=== PATIENT | female | born 1940 | race Caucasian/White ===

== ENCOUNTER → 2016-10-31 | Outpatient (CLI) | payer OTHER ==
[~2016-10-31] MED LIST: AMLO-110 PO; ANSHCCR PR; ANSHCS RE; ATOR10TA88 PO; CALC-51 PO; ESTR10TA PV; GLUC10007 PO; MAGN400T6 PO; MULT-506 PO; TAMO20TA47 PO; VITAMIN D PO
--- NOTE | 2016-10-31 13:31 | MAMMOGRAPHY REPORT ---
BILATERAL DIGITAL DIAGNOSTIC MAMMOGRAM TOMOSYNTHESIS AND TARGETED LEFT ULTRASOUND: 10/31/2016 CLINICAL HISTORY: The patient reports left breast pain for approximately 3 weeks, which is intermitt ent and sometimes is located behind the nipple and sometimes located within the left lateral breast. She also reports a lump on the left lateral areola, which she does not know how long she has had. TECHNIQUE: Breast tomosynthesis in addition to standard 2D mammography was performed. Bilateral CC and MLO 2-D and tomosynthesis images were obtained. COMPARISON: Comparison is made to exams dated: 01/23/2016 mammogram - [facility], 1 09/13/2012 mammogram, 12/10/2011 mammogram, 12/21/2014 mammogram, and 12/06/2010 mammogram. BREAST COMPOSITION: There are scattered areas of fibroglandular density in both breasts. FINDINGS: There are multiple circumscribed benign-appearing masses scattered within the left breast, which likely represent cysts. One 5 mm mass within the left upper inner quadrant appears larger co mpared to prior exams and has somewhat microlobulated margins on the cc tomosynthesis images. The r emainder of both breasts are stable compared to prior exams, without suspicious masses, calcificatio ns, or areas of architectural distortion noted. Bilateral benign-appearing calcifications are not s ignificantly changed. Targeted ultrasound was performed of the left lateral breast in the region of pain pointed out by th e patient, involving the left 2 to 4:00 breast. Numerous scattered round/oval anechoic circumscribe d masses are seen in the left lateral breast, some containing thin internal septations, consistent w ith benign cysts and cyst clusters. These correspond with the mammographic masses. Targeted ultras ound was also performed of the left subareolar breast, which shows no suspicious masses. Targeted u ltrasound of the palpable lump on the left lateral areola demonstrates no suspicious sonographic abn ormality. Targeted ultrasound was performed of the left upper inner quadrant in the region of the mammographic mass which is larger in size. In the left breast at 11:00, 3 cm from the nipple, there is a round, mixed echogenicity but predominantly hypoechoic mass which measures 5 x 4 x 4 mm. A vessel is seen adjacent to the mass but no clear internal vascularity is evident. This is felt to correspond with the increasing mammographic mass and is indeterminant. Recommend ultrasound-guided biopsy for furt her evaluation. IMPRESSION: ACR BI-RADS CATEGORY 4: SUSPICIOUS, TARGETED ULTRASOUND ACR BI-RADS CATEGORY 4: SUSPICI OUS 1. No suspicious mammographic or sonographic abnormality at the site of left lateral and subareolar breast pain. Multiple small benign cysts were seen within the left lateral breast. 2. No suspicious mammographic or sonographic abnormality seen at the site of the palpable lump on t he left lateral areola. Recommend clinical follow-up. 3. Heterogeneous 5 mm mass within the left breast at 11:00. The mass is indeterminant and ultrasou nd guided core needle biopsy is recommended for further evaluation. A phone call was made to the physician's office to confirm faxed results were received. The patient has been verbally notified of the results. She tentatively scheduled the biopsy before leaving the department. Approximately 10% of breast cancers are not detected with mammography. A negative mammographic repor t should not delay biopsy if a clinically suggestive mass is present. Ifeoma Vang M.D. ah/:10/31/2016 12:05:42 Welding Rod Coater: Corina DELANEY)(Robbi), [facility] letter sent: Abnormal 4/5 BI-RADS Code: ACR BI-RADS Category 4: Suspicious Ultrasound BI-RADS: ACR BI-RADS Category 4: Suspic ious
== END | disposition home or self-care (01) ==
LOC: C.MAMM 09:24
PROVIDERS: ATTEND Family Medicine
DX: N64.4 Mastodynia (principal); N60.02 Solitary cyst of left breast; N63 Unspecified lump in breast

== ENCOUNTER → 2016-11-11 | Outpatient (CLI) | payer OTHER ==
--- NOTE | 2016-11-11 10:01 | Discharge Instructions ---
Discharge Instructions Procedure Procedure Date: Nov 11, 2016. Reason for visit: Left Mass. Discharge Discharge Date: Nov 11, 2016. Discharge Diagnosis: post left breast ultrasound guided core biopsy Instructions Activity Recommendations: Additional Limitations (see below) Return to School/Work: no limitations Recommended Home Diet: No Limitations Provider Instructions: ACTIVITY RECOMMENDATIONS: * No lifting, pushing, pulling or exercising the affected side for three days. RETURN TO SCHOOL/WORK: * You may return to work/school after the procedure, but do not perform any strenuous activities for 24 to 48 hours. MEDICATIONS: * Tylenol (two 325 mg) every four to six hours if needed for mild pain (if not allergic to Tylenol). DIET: * Resume previous diet. SPECIAL CARE INSTRUCTIONS: * Keep biopsy site dry for 24 hours. May shower after 24 hours, but do not soak (bathe) incision. * May remove Tegaderm (plastic patch) tomorrow AFTER showering. * Leave the steri-strips on for one week. Allow the steri-strips to fall off by themselves. If not off after one week, you may remove them. You may place a Bandaid crosswise over the strips, if desired. * Apply ice 10 minutes on and 10 minutes off as needed. * Wear a bra at bedtime to sleep more comfortably for 2-3 days. * Your referring physician should have the results after approximately 5 to 7 business days. * Call for unusual bleeding, fever, drainage, etc or if you have any questions call [phone] during normal business hours or after hours call Dr Dupree, . FOLLOW UP VISIT: Follow-up with Referring Physician as scheduled. Allergies Coded Allergies: Iodine (Verified Allergy, Unknown, CT DYE - FINE RASH ALL OVER BODY, ) Bharti Painting Recommendations: Call your doctor if: * Temperature above 101 degrees * Pain not relieved by pain medicine ordered * There is increased drainage or redness from any incision * You have any unanswered questions or concerns. Your Doctors Instructions noted above were prepared by provider Taylor Dupree. Patient Signature Section: Patient Instructions Signature Page Cira Medina Patient (or Guardian) Signature/Date: I have read and understand the instructions given to me by my caregivers. Caregiver/RN/Doctor Signature/Date: The above-named patient and/or guardian has received patient instructions on this date. + Original Patient Signature Page (only) stays with chart. Please make copy for patient.
--- NOTE | 2016-11-11 12:47 | MAMMOGRAPHY REPORT ---
UNILATERAL LEFT DIGITAL DIAGNOSTIC MAMMOGRAM TOMOSYNTHESIS: 11/11/2016 CLINICAL HISTORY: Status post ultrasound-guided core biopsy of an indeterminate mass in the 11:00 le ft breast. Please refer to the report from left breast ultrasound guided core biopsy performed at the same time for full detail. IMPRESSION: POST PROCEDURE IMAGING FOR MARKER PLACEMENT Please refer to the report from left breast ultrasound guided core biopsy performed at the same time for full detail. Approximately 10% of breast cancers are not detected with mammography. A negative mammographic repor t should not delay biopsy if a clinically suggestive mass is present. Taylor Dupree M.D. ay/:11/11/2016 10:06:31 Billing Department Supervisor: Nelli Barreto, [facility] BI-RADS Code: Post Procedure Imaging For Marker Placement
--- NOTE | 2016-11-11 12:47 | MAMMOGRAPHY REPORT ---
THIS REPORT HAS BEEN AMENDED. ULTRASOUND GUIDED BIOPSY LEFT BREAST: 11/11/2016 CLINICAL HISTORY: Indeterminate mixed echogenicity mass in the 11:00 left breast. Patient presents for ultrasound-guided core needle biopsy. COMPARISON: Comparison is made to exams dated: 10/31/2016 mammogram, 10/31/2016 ultrasound, 01/23/2016 mammogram - [facility], and 12/21/2014 mammogram. PATIENT CONSENT: The procedure, risks and benefits were discussed with the patient and informed writ ten consent was obtained. Specific risks to this procedure include: bleeding, infection, puncture of adjacent structure, nontarget biopsy, sampling error, metal allergy and medication reaction. PROCEDURE DESCRIPTION: A time out was performed and the left breast was agreed as the site of biopsy . The skin was prepped and draped in the usual sterile fashion. The solid mass with echogenic halo i n the 11:00 left breast was chosen as the target for biopsy. Subcutaneous and intraparenchymal 1% bu ffered lidocaine without epinephrine was administered as local anesthesia. A skin incision was made. Through the incision, 3 samples were taken with a 14 gauge Achieve biopsy device. A metallic marke r was placed at the biopsy site. Hemostasis was achieved after manual compression. The patient sandy ated the procedure well and there was no immediate complication. The samples were sent to the patho logy department in an appropriately labeled container. Postprocedure left CC and ML tomosynthesis images and reconstructed C-view were obtained. There is a new ribbon-shaped metallic biopsy marker aligning with the mammographic mass in question in the 11 :00 anterior left breast. No significant postbiopsy hematoma is identified. IMPRESSION: ULTRASOUND GUIDED BIOPSY Status post ultrasound guided core needle biopsy of an indeterminate mixed echogenicity seen mass wi th echogenic halo and adjacent vessel in the 11:00 left breast, with biopsy marker placed at the sit e. The patient will receive notification of the biopsy results from her referring physician. Taylor Dupree M.D. ay/:11/11/2016 11:00:09 Fire Investigation Lieutenant: Nelli Barreto, [facility] AMENDMENT: 11/21/2016 Taylor Dupree M.D. 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 The carcinoma is ER and IN positive, HER-2/pati nega tive. The pathology results are concordant with the imaging appearance. Although additional benign simple cysts were identified throughout the left breast on ultrasound, given the diffuse nodular pa ttern of the breasts, recommend further evaluation with a contrast-enhanced breast MRI prior to defi nitive surgical treatment, to exclude the possibility of any other suspicious solid enhancing mass o n MRI.
== END | disposition home or self-care (01) ==
LOC: C.MAMM 08:48
PROVIDERS: ATTEND Family Medicine
DX: C50.912 Malignant neoplasm of unspecified site of left female breast (principal)

== ENCOUNTER → 2017-02-18 | Outpatient (CLI) | payer OTHER ==
[~2017-02-18] MED LIST changes: -ESTR10TA PV; -GLUC10007 PO
[2017-02-18 14:46] VITALS: BP 119/64; PULSE 65; TEMP 37.1; O2SAT 94
--- NOTE | 2017-02-18 15:52 | Radiation Oncology Follow-Up ---
Radiation Oncology Follow-Up Date of Visit Feb 18, 2017. Reason For Visit One-month follow-up in cancer survivorship care plan Radiation Completion Date 01/16/17 Diagnosis (1) Breast cancer Status: Acute Onset Date: 11/11/2016 Histology Subtype: ductal Stage: l (A) Permanent Comment: Left breast discomfort Abnormal left breast mammogram Status post core needle biopsy 11/11/2016 revealing invasive ductal carcinoma Estrogen receptor positive, progesterone receptor positive, and HER-2/pati negative Status post lumpectomy and sentinel lymph node biopsy 12/02/2016 Stage [id number] Status post completion of radiation therapy 01/16/2017 received 3850 cGy utilizing accelerated partial breast irradiation. Last Edited By: Jackie Lawson on Jan 28, 2017 17:05 History of Present Illness Ms. Medina is a 76-year-old female who noted some tingling/pain in the left breast. She does have a family history of breast cancer as the patient's daughter was diagnosed and treated for a breast cancer. She did undergo BRCA testing and was negative. She had undergone bilateral digital screening mammogram on 01/23/2016. No evidence of malignancy was noted and a one-year screening mammogram was recommended. However with the complaint of left breast pain the patient underwent a bilateral digital diagnostic mammogram and targeted left breast ultrasound on 10/31/2016. Multiple circumscribed benign appearing masses were noted scattered within the left breast likely representing cysts. One 5 mm mass was noted within the left upper inner quadrant that appears larger compared to the prior exams and somewhat lobulated margins. The remainder of both breasts were stable compared to prior examinations without suspicious masses or calcifications are areas of architectural distortion. Targeted ultrasound was performed of the left lateral breast in the region of pain as noted by the patient involving the left breast at the 2 to 4 o'clock position. Numerous scattered round/moldable anechoic circumscribed masses are seen in the left lateral breast, some containing thin internal septations consistent with benign cysts or cyst clusters. These correspond with the mammographic masses. Targeted ultrasound was also performed of the left subareolar breast showing no suspicious masses. Targeted ultrasound of the palpable lump on the left lateral areola demonstrated no suspicious sonographic abnormalities. Targeted ultrasound was performed of the left upper inner quadrant in the region of the mammographic mass which had increased slightly in size. This was located at the 11 o'clock position 3 cm from the nipple. A round mixed echogenicity but predominantly hypoechoic mass was noted measuring 0.5 x 0.4 x 0.4 cm. This was felt to correspond with the increasing mammographic mass and was indeterminant. A ultrasound-guided biopsy was therefore recommended with a BI-RADS Category 4. On 11/11/2016 the patient underwent an ultrasound-guided core biopsy of the left breast at the 11 o'clock position. This revealed an invasive ductal carcinoma, Braulio grade 1 of 3. There was no lymphovascular invasion identified. Estrogen receptors were positive (100%, strong intensity, H-score: 300). Progesterone receptors were positive (100%, strong intensity, H-score: 300). HER-2/pati overexpression was negative by IHC and confirmed negative by FISH amplification. Ki-67 proliferation index was 10% (low): 17-10/01/2008-S. Patient was seen by Dr. Stallings for discussion of surgical treatment options. The patient opted to proceed with breast conserving therapy. On 12/02/2016 patient underwent a left breast partial mastectomy and sentinel node biopsy. A single sentinel node was negative for metastatic carcinoma. The lumpectomy specimen confirmed an invasive carcinoma and ST with Braulio grade 2 of 3 measuring 0.5 cm. Margins were negative with the closest margin at 0.2 cm from the anterior margin. No angiolymphatic invasion was identified. No DCIS was noted. Final AJCC pathologic staging was therefore pT1b pN0(sn-), ER positive, MN positive and HER-2/pati negative. Patient went on to have a PROSIG PAM50 genomic evaluation of her tumor. Her Prosigna score was 42 placing her in the low intermediate risk category. This is consistent with a probability of 10 year distant recurrence of 10%. The patient was subsequently seen by Dr. Uriah Cody. Based on the pathology and genomic results he recommended no adjuvant systemic chemotherapy. He did recommend adjuvant antiestrogen therapy with tamoxifen. We were asked to see the patient to discuss the role of adjuvant radiation. It is for this reason the patient is seen in referral She returned to our office and underwent a CT simulation. She was found to be a candidate for accelerated partial breast irradiation. She completed therapy 01/16/2017 and received 3850 cGy.. Interim History She's been doing well over this past month. She did develop an area of redness where she previously had a fiducial sticker. This is steadily improving. She has occasional quick sharp discomfort. She had noticed also a pressure feeling in the breast. She has noted no masses and no change of the axilla. She's had no swelling of her arm. She saw Dr. Cody and was started on tamoxifen. She is tolerating this well and has minimal side effects. She occasionally has a feeling of warmth. Allergies Coded Allergies: Iodine (Verified Allergy, Unknown, CT DYE - FINE RASH ALL OVER BODY, ) Home Medications Scheduled Amlodipine (Norvasc), 5 MG PO QAM Atorvastatin (Lipitor), 1 TAB PO DAILY Calcium Carbonate-Vitamin D (Calcium), 1 TAB PO QPM Hydrocortisone Acetate (Anucort-Hc), 1 SUPP RE DIRECTED Magnesium Oxide (Mag-Ox), 500 MG PO QPM Multivitamin (Multivitamin), 1 TAB PO QAM Tamoxifen (Nolvadex), 20 MG PO DAILY Scheduled PRN Hydrocortisone (Proctosol Hc), 1 APPLN MN TID PRN for Hemorrhoids Review of Systems Gastrointestinal: Symptoms: WNL Oral: Symptoms: No Problems Respiratory: Symptoms: WNL Urinary: Symptoms: WNL Skin: Symptoms: Faint Erythema Other Skin Symptoms: pt states discomfort treatment area notes occ swelling Breast: Right Upper Arm Measurement: 29.7 Right Mid Arm Measurement: 26.0 Right Wrist Measurement: 16.7 Left Upper Arm Measurement: 29.7 Left Mid Arm Measurement: 25.2 Left Wrist Measurement: 17.8 Arm Dominence: Right Physical Exam Vital Signs Date Time Temp Pulse Resp B/P (MAP) Pulse Ox O2 Delivery O2 Flow Rate FiO2 02/18/17 14:46 37.1 65 20 119/64 94 Fatigue: None General Appearance: no apparent distress Eyes: normal inspection, EOMI ENT: normal ENT inspection, hearing grossly normal Neck: no adenopathy, thyroid normal Respiratory/Chest: lungs clear, no respiratory distress, no accessory muscle use Breast: Breast examination reveals well-healed incisions of the left breast. There are no masses or tenderness no axillary adenopathy. There is mild fibrous tissue. There is no erythema or edema. There is no axillary adenopathy. She has no skin retractions. There is no hyperpigmentation. Using the Pickens score cosmesis she has a excellent outcome. The right breast showed no masses or tenderness and no axillary adenopathy. Cardiovascular: regular rate, rhythm, no gallop, no murmur Abdomen: non tender, soft Extremities: no pedal edema Neurologic/Psychiatric: no motor/sensory deficits, alert, normal mood/affect Skin: warm/dry Assessment & Plan Plan: Continue regular follow-up with Dr. Stallings, Dr. Cody, and her primary care physician. She continues on tamoxifen. We discussed that she could use cortisone to the area of skin previously was irritated if she has any itching or discomfort. Mammography was scheduled for the left breast in 6 months. She' ll then have bilateral mammography in 8 months. These will be digital diagnostic mammograms. Today we completed a cancer survivorship care plan. A copy of the document was given to the patient. We asked her to return to our office in 6 months. She will call if she has any questions or concerns in the interim. Total Time In Follow-Up I spent 20 minutes speaking to the patient and performing examination. I spent 20 minutes reviewing information, preparing the survivorship document, and completing this note. Copy To Chelsea Stallings MD; Julia Bocanegra,DO; Uriah Cody M.D. Problem Qualifiers (1) Breast cancer: Breast location: upper inner quadrant of breast Estrogen receptor status: positive Patient sex: female Laterality: left Qualified Codes: C50.212 - Malignant neoplasm of upper-inner quadrant of left female breast; Z17.0 - Estrogen receptor positive status [ER+]
== END | disposition home or self-care (01) ==
LOC: C.ONC 14:42
PROVIDERS: ATTEND Physician Assistant Medical
DX: Z08 Encounter for follow-up examination after completed treatment for malignant neoplasm (principal); Z92.3 Personal history of irradiation; Z85.3 Personal history of malignant neoplasm of breast

== ENCOUNTER → 2017-04-20 | Outpatient (CLI) | payer OTHER ==
[~2017-04-20] MED LIST changes: -VITAMIN D PO
--- NOTE | 2017-04-20 13:49 | MAMMOGRAPHY REPORT ---
UNILATERAL LEFT DIGITAL DIAGNOSTIC MAMMOGRAM TOMOSYNTHESIS WITH CAD: 04/20/2017 CLINICAL HISTORY: 77-year-old woman with a personal history of left breast cancer in the 11:00 axis s tatus post breast conservation treatment with lumpectomy performed in the past 5 months. TECHNIQUE: Left breast CC and MLO 2-D and tomosynthesis images, spot magnification left CC and ML vie ws were obtained. Current study was also evaluated with a Computer Aided Detection (CAD) system. COMPARISON: Comparison is made to exams dated: 11/11/2016 mammogram, 11/11/2016 ultrasound biopsy, 10/22 ultrasound, 01/23/2016 mammogram - [facility], 07/14/2013 mammogram, and 2014 mammogram. BREAST COMPOSITION: There are scattered areas of fibroglandular density in the left breast. FINDINGS: A linear scar marker overlies the anterior left breast. There is mild diffuse skin thicken ing and trabecular edema of the left breast, likely related to prior treatment. There is a well-circ umscribed oval mass with thin lucent rim measuring 2.9 x 2.1 cm in the 11:00 middle one third of the left breast, with surrounding architectural distortion, compatible with the surgical site. A 3 mm ci rcumscribed mass with single associated punctate calcification in the upper outer middle one third of the left breast has been stable on prior mammograms dating back to at least 12/10/2011, therefore li erickson benign. Overall, there is decreased nodularity of the left breast compared to prior mammograms, particularly the lateral aspect of the breast. No new suspicious mass, architectural distortion or cluster of microcalcifications is seen. IMPRESSION: ACR-BI-RADS CATEGORY 3: PROBABLY BENIGN Expected post treatment changes in the 11:00 left breast, without definite mammographic evidence of m alignancy. A close follow-up left diagnostic mammogram and possible ultrasound is recommended to ens ure stability in 6 months. Annual right mammography will also be due at that time. These results and recommendations were discussed with the patient at the time of the exam. She tenta tively scheduled a follow-up appointment prior to leaving our department. Approximately 10% of breast cancers are not detected with mammography. A negative mammographic report should not delay biopsy if a clinically suggestive mass is present. Taylor Dupree M.D. ay/:04/20/2017 11:23:24 Security Operations Center Operator: Corina DELANEY)(Robbi), [facility] letter sent: Follow Up Recommended 3 BI-RADS Code: ACR-BI-RADS Category 3: Probably Benign
== END | disposition home or self-care (01) ==
LOC: C.MAMM 10:48
PROVIDERS: ATTEND Physician Assistant Medical
DX: Z08 Encounter for follow-up examination after completed treatment for malignant neoplasm (principal); Z85.3 Personal history of malignant neoplasm of breast

== ENCOUNTER → 2017-08-26 | Outpatient (CLI) | payer OTHER ==
[~2017-08-26] MED LIST changes: +ATOR10TA82 PO; -ATOR10TA88 PO; +GLUCTAB7 PO; -TAMO20TA47 PO; +TAMO20TA9 PO
[2017-08-26 13:14] VITALS: BP 131/79; PULSE 60; TEMP 36.5; O2SAT 98
--- NOTE | 2017-08-26 14:30 | Radiation Oncology Follow-Up ---
Radiation Oncology Follow-Up Date of Visit Aug 26, 2017. Reason For Visit 6 month follow up Radiation Completion Date APBI 01/16/17 Diagnosis (1) Breast cancer Status: Acute Onset Date: 11/11/2016 Histology Subtype: ductal Stage: l (A) Permanent Comment: Left breast discomfort Abnormal left breast mammogram Status post core needle biopsy 11/11/2016 revealing invasive ductal carcinoma Estrogen receptor positive, progesterone receptor positive, and HER-2/pati negative Status post lumpectomy and sentinel lymph node biopsy 12/02/2016 Stage [id number] Status post completion of radiation therapy 01/16/2017 received 3850 cGy utilizing accelerated partial breast irradiation. Last Edited By: Jackie Lawson on Jan 28, 2017 17:05 History of Present Illness Ms. Jhaveri is a 76-year-old female who noted some tingling/pain in the left breast. She does have a family history of breast cancer as the patient's daughter was diagnosed and treated for a breast cancer. She did undergo BRCA testing and was negative. She had undergone bilateral digital screening mammogram on 01/23/2016. No evidence of malignancy was noted and a one-year screening mammogram was recommended. However with the complaint of left breast pain the patient underwent a bilateral digital diagnostic mammogram and targeted left breast ultrasound on 10/31/2016. Multiple circumscribed benign appearing masses were noted scattered within the left breast likely representing cysts. One 5 mm mass was noted within the left upper inner quadrant that appears larger compared to the prior exams and somewhat lobulated margins. The remainder of both breasts were stable compared to prior examinations without suspicious masses or calcifications are areas of architectural distortion. Targeted ultrasound was performed of the left lateral breast in the region of pain as noted by the patient involving the left breast at the 2 to 4 o'clock position. Numerous scattered round/moldable anechoic circumscribed masses are seen in the left lateral breast, some containing thin internal septations consistent with benign cysts or cyst clusters. These correspond with the mammographic masses. Targeted ultrasound was also performed of the left subareolar breast showing no suspicious masses. Targeted ultrasound of the palpable lump on the left lateral areola demonstrated no suspicious sonographic abnormalities. Targeted ultrasound was performed of the left upper inner quadrant in the region of the mammographic mass which had increased slightly in size. This was located at the 11 o'clock position 3 cm from the nipple. A round mixed echogenicity but predominantly hypoechoic mass was noted measuring 0.5 x 0.4 x 0.4 cm. This was felt to correspond with the increasing mammographic mass and was indeterminant. A ultrasound-guided biopsy was therefore recommended with a BI-RADS Category 4. On 11/11/2016 the patient underwent an ultrasound-guided core biopsy of the left breast at the 11 o'clock position. This revealed an invasive ductal carcinoma, Braulio grade 1 of 3. There was no lymphovascular invasion identified. Estrogen receptors were positive (100%, strong intensity, H-score: 300). Progesterone receptors were positive (100%, strong intensity, H-score: 300). HER-2/pati overexpression was negative by IHC and confirmed negative by FISH amplification. Ki-67 proliferation index was 10% (low): -10/01/2008-S. Patient was seen by Dr. Stallings for discussion of surgical treatment options. The patient opted to proceed with breast conserving therapy. On 12/02/2016 patient underwent a left breast partial mastectomy and sentinel node biopsy. A single sentinel node was negative for metastatic carcinoma. The lumpectomy specimen confirmed an invasive carcinoma and ST with Braulio grade 2 of 3 measuring 0.5 cm. Margins were negative with the closest margin at 0.2 cm from the anterior margin. No angiolymphatic invasion was identified. No DCIS was noted. Final AJCC pathologic staging was therefore pT1b pN0(sn-), ER positive, UT positive and HER-2/pati negative. Patient went on to have a PROSIG PAM50 genomic evaluation of her tumor. Her Prosigna score was 42 placing her in the low intermediate risk category. This is consistent with a probability of 10 year distant recurrence of 10%. The patient was subsequently seen by Dr. Uriah Cody. Based on the pathology and genomic results he recommended no adjuvant systemic chemotherapy. He did recommend adjuvant antiestrogen therapy with tamoxifen. We were asked to see the patient to discuss the role of adjuvant radiation. It is for this reason the patient is seen in referral She returned to our office and underwent a CT simulation. She was found to be a candidate for accelerated partial breast irradiation. She completed therapy 01/16/2017 and received 3850 cGy.. Interim History She continues to have a mild discomfort of the left lateral breast. She states that this is a "gentle" discomfort. She does not give it a pain level. This will occur intermittently. It may not occur for several weeks. She did notice that there was some discomfort after her mammogram. This is in the outer portion of the breast and radiates centrally. There been no changes of the overlying skin. She's noted no change of the axilla. She is up-to-date on mammography. She is on tamoxifen and denies side effects. Allergies Coded Allergies: Iodine (Verified Allergy, Unknown, CT DYE - FINE RASH ALL OVER BODY, ) Home Medications Scheduled Amlodipine (Norvasc), 5 MG PO QAM Atorvastatin (Lipitor), 1 TAB PO DAILY Calcium Carbonate-Vitamin D (Calcium), 1 TAB PO QPM Hlpokvsqzvq-Iyqnqgrjqic-Onz C- (Glucosamine Chondroitin), 1 TAB PO BID Hydrocortisone Acetate (Anucort-Hc), 1 SUPP RE DIRECTED Magnesium Oxide (Mag-Ox), 500 MG PO QPM Multivitamin (Multivitamin), 1 TAB PO QAM Tamoxifen (Nolvadex), 20 MG PO DAILY Scheduled PRN Hydrocortisone (Proctosol Hc), 1 APPLN UT TID PRN for Hemorrhoids Review of Systems Gastrointestinal: Symptoms: WNL, Rectal Bleeding GI Comments: Rectal spotting that she relates to her hemorrhoids; Oral: Symptoms: No Problems Respiratory: Symptoms: WNL Urinary: Symptoms: WNL Skin: Symptoms: No Problems Breast: Right Upper Arm Measurement: 32.5 Right Mid Arm Measurement: 24.5 Right Wrist Measurement: 17.0 Left Upper Arm Measurement: 31.5 Left Mid Arm Measurement: 23.5 Left Wrist Measurement: 17.5 Arm Dominence: Right Physical Exam Vital Signs Date Time Temp Pulse Resp B/P (MAP) Pulse Ox O2 Delivery O2 Flow Rate FiO2 08/26/17 13:14 36.5 60 20 131/79 98 General Appearance: no apparent distress Eyes: normal inspection, EOMI ENT: normal ENT inspection, hearing grossly normal Neck: no adenopathy, thyroid normal Respiratory/Chest: lungs clear, no respiratory distress, no accessory muscle use Breast: Breast examination reveals well-healed incisions of the left breast. There are mild fibrous changes in the upper central portion of the breast. There is no tenderness. There are no masses. She has no changes of the axilla. There are no skin retractions or nipple changes. Using the [place] score cosmesis she has a excellent outcome. The right breast showed no masses or tenderness no axillary adenopathy. Cardiovascular: regular rate, rhythm, no gallop, no murmur Abdomen: non tender, soft Extremities: normal inspection Neurologic/Psychiatric: no motor/sensory deficits, alert, normal mood/affect Skin: warm/dry Pain Management Patient Reports Pain: No Pain Management Plan She currently denies pain and therefore requires no pain management. 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 TECHNIQUE: Left breast CC and MLO 2-D and tomosynthesis images, spot magnification left CC and ML views were obtained. Current study was also evaluated with a Computer Aided Detection (CAD) system. COMPARISON: Comparison is made to exams dated: 11/11/2016 mammogram, 11/11/2016 ultrasound biopsy, 10/31/2016 ultrasound, 01/23/2016 mammogram - [facility], 07/14/2013 mammogram, and 12/21/2014 mammogram. BREAST COMPOSITION: There are scattered areas of fibroglandular density in the left breast. FINDINGS: A linear scar marker overlies the anterior left breast. There is mild diffuse skin thickening and trabecular edema of the left breast, likely related to prior treatment. There is a well-circumscribed oval mass with thin lucent rim measuring 2.9 x 2.1 cm in the 11:00 middle one third of the left breast, with surrounding architectural distortion, compatible with the surgical site. A 3 mm circumscribed mass with single associated punctate calcification in the upper outer middle one third of the left breast has been stable on prior mammograms dating back to at least 12/10/2011, therefore likely benign. Overall , there is decreased nodularity of the left breast compared to prior mammograms , particularly the lateral aspect of the breast. No new suspicious mass, architectural distortion or cluster of microcalcifications is seen. IMPRESSION: ACR-BI-RADS CATEGORY 3: PROBABLY BENIGN Expected post treatment changes in the 11:00 left breast, without definite mammographic evidence of malignancy. A close follow-up left diagnostic mammogram and possible ultrasound is recommended to ensure stability in 6 months. Annual right mammography will also be due at that time. These results and recommendations were discussed with the patient at the time of the exam. She tentatively scheduled a follow-up appointment prior to leaving our department. Approximately 10% of breast cancers are not detected with mammography. A negative mammographic report should not delay biopsy if a clinically suggestive mass is present. Taylor Dupree M.D. ay/:04/20/2017 11:23:24 Medical Art Therapist: Corina DELANEY)(Robbi), [facility] letter sent: Follow Up Recommended 3 BI-RADS Code: ACR-BI-RADS Category 3: Probably Benign Dictated by: Taylor Dupree MD Signed by: Taylor Dupree MD Assessment & Plan Plan: Continue scheduled mammography. Scheduling was checked and date and time were given. Her next mammogram will be a lateral digital diagnostic mammogram. She continues on tamoxifen. Continue regular follow-up with medical oncology and her breast surgeon. Dr. Cody is now retired. She stated that she will be receiving an appointment to follow-up with one of his associates. We asked her to return to our office in 1 year. She may call if she has any questions or concerns. Total Time In Follow-Up I spent 20 minutes speaking to the patient performing examination. I spent 15 minutes reviewing information and completing this note. Copy To Chelsea Stallings MD; Julia Bocanegra,DO Problem Qualifiers (1) Breast cancer: Breast location: upper inner quadrant of breast Estrogen receptor status: positive Patient sex: female Laterality: left Qualified Codes: C50.212 - Malignant neoplasm of upper-inner quadrant of left female breast; Z17.0 - Estrogen receptor positive status [ER+]
== END | disposition home or self-care (01) ==
LOC: C.ONC 13:09
PROVIDERS: ATTEND Physician Assistant Medical
DX: Z08 Encounter for follow-up examination after completed treatment for malignant neoplasm (principal); Z92.3 Personal history of irradiation; Z85.3 Personal history of malignant neoplasm of breast

== ENCOUNTER → 2017-10-21 | Outpatient (CLI) | payer OTHER ==
--- NOTE | 2017-10-21 15:57 | MAMMOGRAPHY REPORT ---
BILATERAL DIGITAL DIAGNOSTIC MAMMOGRAM TOMOSYNTHESIS WITH CAD: 10/21/2017 CLINICAL HISTORY: History of left breast cancer status post lumpectomy and radiation therapy, who pre sents for her second follow-up after treatment. She denies any palpable lumps or other complaints. TECHNIQUE: Breast tomosynthesis in addition to standard 2D mammography was performed. Current study was also evaluated with a Computer Aided Detection (CAD) system. Bilateral CC and MLO 2-D and tomosy nthesis images and spot magnification left CC and ML views were obtained. COMPARISON: Comparison is made to exams dated: 04/20/2017 mammogram, 11/11/2016 mammogram, 11/11/2016 u ltrasound biopsy, 10/31/2016 mammogram, 01/23/2016 mammogram - [facility], and 12/22/19 15 mammogram. BREAST COMPOSITION: There are scattered areas of fibroglandular density in both breasts. FINDINGS: Again noted are post surgical changes in the left upper inner quadrant status post lumpecto my, including density and architectural distortion at the surgical bed. The density at the surgical bed is decreased compared to the March 2017 exam. A linear scar marker denotes a scar on the left a nterior breast. Mild diffuse left breast skin thickening is not significantly changed and is likely related to prior radiation therapy. The remainder of the both breasts are stable compared to prior e xams, without suspicious masses, calcifications, or areas of architectural distortion noted in either breast. Bilateral scattered benign-appearing calcifications and bilateral nodularity are stable com pared to prior exams. IMPRESSION: ACR-BI-RADS CATEGORY 3: PROBABLY BENIGN Post treatment changes in the left breast, without mammographic evidence of malignancy in either rayo st. Recommend follow-up diagnostic tomosynthesis mammograms of the left breast in 6 months to reeval uate left breast posttreatment changes. The patient has been verbally notified of the results. Approximately 10% of breast cancers are not detected with mammography. A negative mammographic report should not delay biopsy if a clinically suggestive mass is present. Ifeoma Vang M.D. /:10/21/2017 10:41:05 Mattress Finisher: Nelli HERNANDEZ(Freda)(Robbi), [facility] letter sent: Personal History 3 BI-RADS Code: ACR-BI-RADS Category 3: Probably Benign
== END | disposition home or self-care (01) ==
LOC: C.MAMM 10:18
PROVIDERS: ATTEND Physician Assistant Medical
DX: Z85.3 Personal history of malignant neoplasm of breast (principal); Z98.890 Other specified postprocedural states; Z92.3 Personal history of irradiation